=== PATIENT | male | born 1980 | race Caucasian/White ===

== ENCOUNTER 2016-12-19 12:17 | Inpatient (IN) | payer OTHER ==
[2016-12-19 14:11] VITALS: BMI 22.1
--- NOTE | 2016-12-19 16:30 | HP ---
COWS - Scale Resting Pulse: 1= [place] 81-100 Sweatin= Chills/Flushing Restless Observation: 1= Difficult to Sit Still Pupil Size: 1= Pupils >than Normal Bone or Joint Aches: 1= Mild Discomfort Runny Nose/ Eye Tearin= Nasal Congestion GI Upset > 30mins: 1= Stomach Cramp Tremor Observation: 1= Tremor [place], Not Seen Yawning Observation: 0= None Anxiety or Irritability: 1=Feels Anxious/Irritable Goose Flesh Skin: 0=Smooth Skin COWS Score: 9 Admission ROS S - HPI Chief Complaint: I need to stop using opioids as per parole, and i need help. Allergies/Adverse Reactions: Allergies Allergy/AdvReac Type Severity Reaction Status Date / Time No Known Allergies Allergy Verified 12/19/16 14:31 History of Present Illness: 36 y/o m pt with a h/o percocet dep., cocaine and acohol abuse seeking detox. Exam Limitations: No Limitations - Ebola screening Have you traveled outside of the country in the last 21 days: No Have you had contact with anyone from an Ebola affected area: No Have you been sick,other than usual withdrawal symptoms: No Do you have a fever: No - Review of Systems Constitutional: Chills, Changes in sleep, Unexplained wgt Loss (5 lbs over past month) EENT: reports: Nose Congestion Respiratory: reports: No Symptoms reported Cardiac: reports: No Symptoms Reported GI: reports: Poor Appetite : reports: No Symptoms Reported Musculoskeletal: reports: Muscle Weakness Integumentary: reports: Sweating Neuro: reports: No Symptoms reported Endocrine: reports: No Symptoms Reported Hematology: reports: No Symptoms Reported Psychiatric: reports: Anxious, Depressed Other Systems: Reviewed and Negative Patient History - Patient Medical History Hx Anemia: No Hx Asthma: No Hx Chronic Obstructive Pulmonary Disease (COPD): No Hx Cancer: No Hx Cardiac Disorders: No Hx Congestive Heart Failure: No Hx Hypertension: No Hx Hypercholesterolemia: No Hx Pacemaker: No HX Cerebrovascular Accident: No Hx Seizures: No Hx Diabetes: No Hx Gastrointestinal Disorders: No Hx Liver Disease: No Hx Genitourinary Disorders: No Hx Sexually Transmitted Disorders: No Hx Renal Disease (ESRD): No Hx Thyroid Disease: No Hx Human Immunodeficiency Virus (HIV): No Hx Hepatitis C: No Hx Depression: Yes Hx Suicide Attempt: No Hx Bipolar Disorder: No Hx Schizophrenia: No (schizoaffective ) - Patient Surgical History Past Surgical History: Yes Hx Neurologic Surgery: No Hx Cataract Extraction: No Hx Cardiac Surgery: No Hx Lung Surgery: No Hx Breast Surgery: No Hx Breast Biopsy: No Hx Abdominal Surgery: No Hx Appendectomy: No Hx Cholecystectomy: No Hx Genitourinary Surgery: No Hx Section: No Hx Orthopedic Surgery: No Other Surgical History: tendon repair, left hand Anesthesia Reaction: No - PPD History Previous Implant?: Yes Documented Results: Negative w/o proof Implanted On Prior [facility] Admission?: No PPD to be Administered?: Yes - Reproductive History Patient is a Female of Child Bearing Age (11 -55 yrs old): Yes - Smoking Cessation Smoking history: Current every day smoker Have you smoked in the past 12 months: Yes Aproximately how many cigarettes per day: 10 Cigars Per Day: 0 Hx Chewing Tobacco Use: No Initiated information on smoking cessation: Yes 'Breaking Loose' booklet given: 12/19/16 - Substance & Tx. History Hx Alcohol Use: Yes Hx Substance Use: Yes Substance Use Type: Alcohol, Cocaine, Opiates - Substances Abused Cocaine Route: Inhalation Frequency: 1-2 times per week Amount used: $100-200 Age of first use: 21 Date of Last Use: 12/18/16 Percocet Route: Oral Frequency: Daily Amount used: 1 tabs. (30 mg.) Age of first use: 19 Date of Last Use: 12/18/16 Alcohol-beer Route: Oral Frequency: 1-2 times per week Amount used: 5-6 (12 oz.) Age of first use: 15 Date of Last Use: 12/17/16 Family Disease History - Family Disease History Family Disease History: Other: Mother (breast - ) Admission Physical Exam BHS - Vital Signs Vital Signs: Vital Signs - 24 hr 12/19/16 14:09 Temperature 95.4 F L Pulse Rate 61 Respiratory 16 Rate Blood Pressure 99/63 36 y/o m pt aox3 in nad ambulating , restless - Physical General Appearance: Yes: Thin, Sweating, Anxious HEENTM: Yes: EOMI, Normocephalic, Normal Voice, CAMILA Respiratory: Yes: Chest Non-Tender, Lungs Clear, Normal Breath Sounds, No Respiratory Distress Neck: Yes: Supple Breast: Yes: Within Normal Limits Cardiology: Yes: Regular Rhythm, Regular Rate, S1, S2 Abdominal: Yes: Non Tender, Flat, Soft, Increased Bowel Sounds Genitourinary: Yes: Within Normal Limits Back: Yes: Decreased Range of Motion Musculoskeletal: Yes: Back pain Extremities: Yes: Within Normal Limits Neurological: Yes: fixed income director II-XII NML intact, Fully Oriented, Alert, Motor Strength 5/5, Normal Response Integumentary: Yes: Moist Lymphatic: Yes: Within Normal Limits - Diagnostic (1) Opioid dependence with withdrawal Current Visit: Yes Status: Chronic (2) Cocaine dependence, uncomplicated Current Visit: Yes Status: Chronic (3) Alcohol abuse Current Visit: Yes Status: Chronic (4) Nicotine dependence Current Visit: Yes Status: Chronic Qualifiers: Nicotine product type: cigarettes Substance use status: uncomplicated Qualified Code(s): F17.210 - Nicotine dependence, cigarettes, uncomplicated (5) Schizoaffective disorder Current Visit: Yes Status: Chronic Qualifiers: Schizoaffective disorder type: unspecified Qualified Code(s): F25.9 - Schizoaffective disorder, unspecified Cleared for Admission [facility] - Detox or Rehab [facility] Level of Care: Medically Managed Detox Regimen/Protocol: Methadone/Valium, Suboxone [facility] Breath Alcohol Content Breath Alcohol Content: 0 Urine Drug Screen - Results Drug Screen Negative: No Urine Drug Screen Results: ML-Cocaine, OPI-Opiates
[2016-12-19] MEDS ORDERED: MAGNESIUM HYDROX 2400MG/30ML ORAL SUSPENSION 30 ML CUP PO PRN (16:56)
[2016-12-19] MEDS ORDERED: guaiFENesin/D-METHORPHAN HB 10 ML UNIT-DOSE CUPS PO PRN (16:56)
[2016-12-19] MEDS ORDERED: diphenhydrAMINE HCL 50 MG CAPSULE PO PRN (16:56)
[2016-12-19] MEDS ORDERED: MENTHOL/PHENOL 1 EACH UD MM PRN (16:56)
[2016-12-19] MEDS ORDERED: P-EPHED 60MG/TRIPROLIDI 2.5MG TABLET PO PRN (16:56)
[2016-12-19] MEDS ORDERED: ACETAMINOPHEN 325 MG TABLET (FP) PO PRN (16:56)
[2016-12-19] MEDS ORDERED: IBUPROFEN 400 MG TABLET (FP) PO PRN (16:56)
[2016-12-19] MEDS ORDERED: NICOTINE POLACRILEX 4 MG GUM BC PRN (16:56)
[2016-12-19] MEDS ORDERED: LOPERAMIDE HCL 2 MG CAPSULE PO PRN (16:56)
[2016-12-19] MEDS ORDERED: MAGNESIUM CITRATE 300 ML BOTTLE PO PRN (16:56)
[2016-12-19] MEDS ORDERED: MAG HYDROX/AL HYDROX/SIMETH 30 ML UNIT-DOSE CUP PO PRN (16:56)
[2016-12-19] MEDS ORDERED: METHADONE HCL 10 MG TABLET (FOR DETOX USE ONLY) PO ONE ×2 (17:30→22:14)
[2016-12-19] MEDS: diazePAM 5 MG TABLET PO PRN ×2 (18:11→22:10)
[2016-12-19] MEDS: THIAMINE HCL 100 MG TABLET (FP) PO SCH (22:10)
[2016-12-19 22:51] LABS: URINE APPEARANCE CLEAR; URINE BILIRUBIN NEGATIVE (NEGATIVE); URINE BLOOD NEGATIVE (NEGATIVE); URINE COLOR YELLOW; URINE GLUCOSE (UA) NEGATIVE (NEGATIVE); URINE KETONE NEGATIVE (NEGATIVE); URINE NITRITE NEGATIVE (NEGATIVE); URINE PROTEIN NEGATIVE (NEGATIVE); URINE UROBILINOGEN NEGATIVE E.U./dl (0.2-1.0)
[2016-12-19 22:57] LABS: URINE LEUK ESTERASE TRACE (NEGATIVE)
[2016-12-19 22:59] LABS: URINE MUCUS RARE; URINE RBC 1 /hpf (0-3); URINE WBC 10 /hpf (3-5)
[2016-12-20] MEDS: diazePAM 5 MG TABLET PO PRN ×7 (02:10→22:44)
[2016-12-20] MEDS ORDERED: METHADONE HCL 5 MG TABLET (FOR DETOX USE ONLY) PO SCH (10:00)
[2016-12-20] MEDS: METHADONE HCL 5 MG TABLET (FOR DETOX USE ONLY) PO ONE ×2 (10:06→10:47)
[2016-12-20] MEDS: PRENATAL VITAMINS W/ FOLIC ACID TABLET (FP) PO SCH (10:06)
[2016-12-20] MEDS: NICOTINE 21 MG/24 HOURS TOPICAL PATCH TD SCH (10:06)
[2016-12-20 10:08] LABS: MCH 31.7 pg (25.7-33.7); MCHC 33.6 g/dl (32.0-35.9); MEAN CELL VOLUME 94.3 fl (80-96); MEAN PLT VOLUME 10.3 fl (7.5-11.1); PLATELET COUNT 242 K/MM3 (134-434); RDW 13.5 % (11.9-15.9); WHITE BLOOD COUNT 6.6 K/mm3 (4.0-10.0)
--- NOTE | 2016-12-20 10:37 | PN ---
BHS COWS - Scale Resting Pulse: 1= [place] 81-100 Sweatin= Chills/Flushing Restless Observation: 3= Extraneous Movement Pupil Size: 2= Moderately Dilated Bone or Joint Aches: 4=Acute Joint/Muscle Pain Runny Nose/ Eye Tearin= Nasal Congestion GI Upset > 30mins: 1= Stomach Cramp Tremor Observation of Outstretched Hands: 2= Slight Tremor Visible Yawning Observation: 1= 1-2x During Session Anxiety or Irritability: 2=Irritable/Anxious Goose Flesh Skin: 0=Smooth Skin COWS Score: 18 BHS Progress Note (SOAP) Subjective: ANXIETY,IRRITABILITY,SWEATS/COLD,INTERMITTENT SLEEP. Objective: 12/20/16 10:36 Vital Signs 12/20/16 12/20/16 12/20/16 03:30 06:33 10:15 Temperature 95.6 F L 96.7 F L Pulse Rate 90 74 Respiratory 18 16 18 Rate Blood Pressure 116/59 98/56 Laboratory Last Values WBC 6.6 K/mm3 (4.0-10.0) 12/20/16 06:00 RBC 5.47 M/mm3 (4.00-5.60) 12/20/16 06:00 Hgb 17.3 GM/dL (11.7-16.9) H 12/20/16 06:00 Hct 51.6 % (35.4-49) H 12/20/16 06:00 MCV 94.3 fl (80-96) 12/20/16 06:00 MCHC 33.6 g/dl (32.0-35.9) 12/20/16 06:00 RDW 13.5 % (11.9-15.9) 12/20/16 06:00 Plt Count 242 K/MM3 (134-434) 12/20/16 06:00 MPV 10.3 fl (7.5-11.1) 12/20/16 06:00 Urine Color Yellow 12/19/16 22:41 Urine Appearance Clear 12/19/16 22:41 Urine pH 5.0 (5.0-8.0) 12/19/16 22:41 Ur Specific [place] 1.032 (1.001-1.035) 12/19/16 22:41 Urine Protein Negative (NEGATIVE) 03/21/17 22:41 Urine Glucose (UA) Negative (NEGATIVE) 12/19/16 22:41 Urine Ketones Negative (NEGATIVE) 12/19/16 22:41 Urine Blood Negative (NEGATIVE) 12/19/16 22:41 Urine Nitrite Negative (NEGATIVE) 12/19/16 22:41 Urine Bilirubin Negative (NEGATIVE) 12/19/16 22:41 Urine Urobilinogen Negative E.U./dl (0.2-1.0) 12/19/16 22:41 Ur Leukocyte Esterase Trace (NEGATIVE) H 12/19/16 22:41 Urine RBC 1 /hpf (0-3) 12/19/16 22:41 Urine WBC 10 /hpf (3-5) 12/19/16 22:41 Urine Mucus Rare 12/19/16 22:41 LABS NOTED 12/20/16 10:36 Assessment: 12/20/16 10:36 WITHDRAWAL SX R/O UTI Plan: CONTINUE DETOX REPEAT UA TODAY INCREASE PO FLUIDS.
[2016-12-20] MEDS ORDERED: METHADONE HCL 5 MG TABLET (FOR DETOX USE ONLY) PO ONE (10:45)
[2016-12-20] MEDS ORDERED: METHADONE HCL 10 MG TABLET (FOR DETOX USE ONLY) PO ONE (10:45)
[2016-12-20 10:50] LABS: ALBUMIN 4.2 g/dl (3.4-5.0); BILIRUBIN,TOTAL 0.8 mg/dL (0.2-1.0); CREATININE 1.5 mg/dL (0.7-1.3); TOT PROT 7.7 g/dl (6.4-8.2)
--- NOTE | 2016-12-20 11:01 | CONSULT ---
[facility] Psychiatric Consult - Data Date of interview: 12/20/16 Admission source: [facility] Identifying data: First admission to [facility] for this 36 y/o male seeking detox treatment for alcohol,cocaine and opiate dependence.Patient is single without children,domiciled,unemployed and supported on SSI benefits.Released from shelter approximately five months ago after serving a 5- year sentence.Mr Burnette is currently on parole. Substance Abuse History: - Smoking Cessation. Smoking history: Current every day smoker. Have you smoked in the past 12 months: Yes. Aproximately how many cigarettes per day: 10. Cigars Per Day: 0. Hx Chewing Tobacco Use: No. Initiated information on smoking cessation: Yes. 'Breaking Loose' booklet given : 12/19/16. - Substance & Tx. History. Hx Alcohol Use: Yes. Hx Substance Use : Yes. Substance Use Type: Alcohol, Cocaine, Opiates. - Substances Abused. * * Cocaine. Route: Inhalation. Frequency: 1-2 times per week. Amount used: $ 100-200. Age of first use: 21. Date of Last Use: 12/18/16. Percocet. Route: Oral. Frequency: Daily. Amount used: 1 tabs. (30 mg.). Age of first use: 19. Date of Last Use: 12/18/16. Alcohol-beer. Route: Oral. Frequency : 1-2 times per week. Amount used: 5-6 (12 oz.). Age of first use: 15. Date of Last Use: 12/17/16. Confirmed by the patient. Medical History: Patient endorses good general health.Noted past history of orthosurgery for tendon repair (left hand),fracture of right arm/middle finger and injury to left shoulder.No reported allergies. Psychiatric History: No history of psychiatric hospitalizations.Patient reports prior exposure to benzodiazepines (prescribed) before his incarceration.Mr Burnette indicates that he got referred to [facility] mental health clinic for psychiatric assessment/follow-up.Diagnosed with PTSD,Anxiety Disorder and Schizoaffective Disorder.He is making pressing requests for scripts for diazepam ,klonopin and xanax.No history of suicide attempts. Physical/Sexual Abuse/Trauma History: Patient denies history of suicide attempts. Additional Comment: Urine Drug Screen Results: ML-Cocaine, OPI-Opiates.Noted. Mental Status Exam - Mental Status Exam Alert and Oriented to: Time, Place, Person Cognitive Function: Good Patient Appearance: Well Groomed (neatly attired,close-shaven) Mood: Hopeful, Euthymic Affect: Appropriate, Normal Range Patient Behavior: Appropriate, Cooperative Speech Pattern: Clear Voice Loudness: Normal Thought Process: Goal Oriented Thought Disorder: Not Present Hallucinations: Denies Suicidal Ideation: Denies Homicidal Ideation: Denies Insight/Judgement: Poor Sleep: Well Appetite: Good Muscle strength/Tone: Normal Gait/Station: Normal Psychiatric Findings - Problem List ([place] 1, 2,3) (1) Cocaine dependence, uncomplicated Current Visit: Yes Status: Acute (2) Opioid dependence with withdrawal Current Visit: Yes Status: Acute (3) Alcohol dependence Current Visit: Yes Status: Acute (4) Nicotine dependence Current Visit: Yes Status: Acute Qualifiers: Nicotine product type: cigarettes Substance use status: uncomplicated Qualified Code(s): F17.210 - Nicotine dependence, cigarettes, uncomplicated (5) Schizoaffective disorder Current Visit: Yes Status: Chronic Qualifiers: Schizoaffective disorder type: unspecified Qualified Code(s): F25.9 - Schizoaffective disorder, unspecified Comment: Self-report. - Initial Treatment Plan Initial Treatment Plan: Psychoeducation.Detoxification.Observation.Patient declines to take psychotropic medications with the exception of benzodiazepines/ detox drugs.
--- NOTE | 2016-12-20 11:07 | EKG ---
Test Reason : Blood Pressure : / mmHG Vent. Rate : 067 BPM Atrial Rate : 067 BPM P-R Int : 154 ms QRS Dur : 092 ms QT Int : 416 ms P-R-T Axes : 059 069 045 degrees QTc Int : 439 ms NORMAL SINUS RHYTHM WITH SINUS ARRHYTHMIA NORMAL ECG NO PREVIOUS ECGS AVAILABLE Confirmed by PITER URBINA MD ([id number]) on 12/20/2016 11:07:13 AM Referred By: Confirmed By:PITER URBINA MD
[2016-12-20 12:23] LABS: HIV 1 & 2 AB NEGATIVE; HIV 1 AGp24 NEGATIVE
[2016-12-20 14:56] LABS: URINE APPEARANCE CLEAR; URINE BILIRUBIN NEGATIVE (NEGATIVE); URINE BLOOD NEGATIVE (NEGATIVE); URINE COLOR LTYELLOW; URINE GLUCOSE (UA) NEGATIVE (NEGATIVE); URINE KETONE NEGATIVE (NEGATIVE); URINE LEUK ESTERASE NEGATIVE (NEGATIVE); URINE NITRITE NEGATIVE (NEGATIVE); URINE PROTEIN NEGATIVE (NEGATIVE); URINE UROBILINOGEN NEGATIVE E.U./dl (0.2-1.0)
[2016-12-20] MEDS: THIAMINE HCL 100 MG TABLET (FP) PO SCH (22:14)
[2016-12-20] MEDS ORDERED: RANITIDINE HCL 150 MG TABLET (FP) PO ONE (23:07)
[2016-12-21] MEDS: diazePAM 5 MG TABLET PO PRN ×4 (02:52→16:41)
[2016-12-21] MEDS ORDERED: METHADONE HCL 10 MG TABLET (FOR DETOX USE ONLY) PO ONE (10:00)
[2016-12-21] MEDS ORDERED: METHADONE HCL 5 MG TABLET (FOR DETOX USE ONLY) PO ONE (10:00)
[2016-12-21] MEDS: PRENATAL VITAMINS W/ FOLIC ACID TABLET (FP) PO SCH (10:13)
[2016-12-21] MEDS: RANITIDINE HCL 150 MG TABLET (FP) PO SCH (10:13)
[2016-12-21] MEDS: NICOTINE 21 MG/24 HOURS TOPICAL PATCH TD SCH (10:15)
--- NOTE | 2016-12-21 11:01 | PN ---
BHS COWS - Scale Resting Pulse: 1= [place] 81-100 Sweatin= Chills/Flushing Restless Observation: 3= Extraneous Movement Pupil Size: 2= Moderately Dilated Bone or Joint Aches: 4=Acute Joint/Muscle Pain Runny Nose/ Eye Tearin= Nasal Congestion GI Upset > 30mins: 1= Stomach Cramp Tremor Observation of Outstretched Hands: 2= Slight Tremor Visible Yawning Observation: 2= >3x During Session Anxiety or Irritability: 2=Irritable/Anxious Goose Flesh Skin: 0=Smooth Skin COWS Score: 19 BHS Progress Note (SOAP) Subjective: ANXIETY,IRRITABILITY,AGITATIONS,RESTLESSNESS, SWEATS, INTERMITTENT SLEPP. Objective: 12/21/16 11:00 Vital Signs Temperature 95.7 F L 12/21/16 09:28 Pulse Rate 79 12/21/16 09:28 Respiratory Rate 18 12/21/16 09:28 Blood Pressure 108/67 12/21/16 09:28 O2 Sat by Pulse Oximetry (%) Laboratory Last Values WBC 6.6 K/mm3 (4.0-10.0) 12/20/16 06:00 RBC 5.47 M/mm3 (4.00-5.60) 12/20/16 06:00 Hgb 17.3 GM/dL (11.7-16.9) H 12/20/16 06:00 Hct 51.6 % (35.4-49) H 12/20/16 06:00 MCV 94.3 fl (80-96) 12/20/16 06:00 MCHC 33.6 g/dl (32.0-35.9) 12/20/16 06:00 RDW 13.5 % (11.9-15.9) 12/20/16 06:00 Plt Count 242 K/MM3 (134-434) 12/20/16 06:00 MPV 10.3 fl (7.5-11.1) 12/20/16 06:00 Sodium 138 mmol/L (136-145) 12/20/16 06:00 Potassium 4.7 mmol/L (3.5-5.1) 12/20/16 06:00 Chloride 100 mmol/L (98-107) 12/20/16 06:00 Carbon Dioxide 31 mmol/L (21-32) 12/20/16 06:00 Anion Gap 7 (8-16) L 12/20/16 06:00 BUN 20 mg/dL (7-18) H 12/20/16 06:00 Creatinine 1.5 mg/dL (0.7-1.3) H 12/20/16 06:00 Creat Clearance w eGFR 53.57 (>60) 12/20/16 06:00 Random Glucose 61 mg/dL (74-106) L 12/20/16 06:00 Calcium 10.0 mg/dL (8.5-10.1) 12/20/16 06:00 Total Bilirubin 0.8 mg/dL (0.2-1.0) 12/20/16 06:00 AST 37 U/L (15-37) 12/20/16 06:00 ALT 36 U/L (12-78) 12/20/16 06:00 Alkaline Phosphatase 115 U/L (45-117) 12/20/16 06:00 Total Protein 7.7 g/dl (6.4-8.2) 12/20/16 06:00 Albumin 4.2 g/dl (3.4-5.0) 12/20/16 06:00 Urine Color Ltyellow 12/20/16 13:20 Urine Appearance Clear 12/20/16 13:20 Urine pH 6.0 (5.0-8.0) 12/20/16 13:20 Ur Specific [place] 1.011 (1.001-1.035) 12/20/16 13:20 Urine Protein Negative (NEGATIVE) 12/20/16 13:20 Urine Glucose (UA) Negative (NEGATIVE) 12/20/16 13:20 Urine Ketones Negative (NEGATIVE) 12/20/16 13:20 Urine Blood Negative (NEGATIVE) 12/20/16 13:20 Urine Nitrite Negative (NEGATIVE) 12/20/16 13:20 Urine Bilirubin Negative (NEGATIVE) 12/20/16 13:20 Urine Urobilinogen Negative E.U./dl (0.2-1.0) 12/20/16 13:20 Ur Leukocyte Esterase Negative (NEGATIVE) 12/20/16 13:20 Urine RBC 1 /hpf (0-3) 12/19/16 22:41 Urine WBC 10 /hpf (3-5) 12/19/16 22:41 Urine Mucus Rare 12/19/16 22:41 RPR Titer Nonreactive (NONREACTIVE) 12/20/16 06:00 HIV 1&2 Antibody Screen Negative 12/20/16 08:50 HIV P24 Antigen Negative 12/20/16 08:50 Assessment: 12/21/16 11:01 WITHDRAWAL SX Plan: CONTINUE DETOX
[2016-12-21] MEDS ORDERED: QUEtiapine FUMARATE 100 MG TABLET (FP) PO STA (12:45)
[2016-12-21] MEDS: hydrOXYzine PAMOATE 50 MG CAPSULE (FP) PO PRN ×2 (12:55→22:15)
--- NOTE | 2016-12-21 13:03 | PN ---
Psychiatric Progress Note Vital Signs: Vital Signs Period Temp Pulse Resp BP Sys/Lewis Pulse Ox Last 24 Hr 95.7 F-97.9 F 75-98 16-18 90-125/67-78 Date of Session: 12/21/16 Chief Complaint:: agitation and anxiety HPI: As per nursing reports patient reports anxiety, asking for benzodiazepins, agitated and irritable Current Medications: Active Medications Generic Name Dose Route Start Last Admin Trade Name Freq PRN Reason Stop Dose Admin Acetaminophen 650 mg 12/19/16 16:56 Tylenol - PO Q4H PRN FEVER OR PAIN Al Hydroxide/Mg Hydroxide 30 ml 12/19/16 16:56 12/20/16 23:06 Mylanta Oral Suspension - PO 30 ml Q6H PRN Administration DYSPEPSIA Diazepam 10 mg 12/19/16 16:56 12/21/16 11:04 Valium - PO 12/21/16 16:55 10 mg Q4H PRN Administration WITHDRAWAL(CONT SUBST) Diphenhydramine HCl 50 mg 12/19/16 16:56 Benadryl - PO HSMR1 PRN INSOMNIA Eucalyptus/Menthol/Phenol/Sorbitol 1 each 12/19/16 16:56 Cepastat Lozenge - MM Q4H PRN SORE THROAT Guaifenesin 10 ml 12/19/16 16:56 Robitussin Dm - PO Q6H PRN COUGH Hydroxyzine Pamoate 50 mg 12/21/16 12:44 12/21/16 12:55 Vistaril - PO 50 mg Q4H PRN Administration FOR ITCHING Ibuprofen 400 mg 12/19/16 16:56 Motrin - PO Q6H PRN SEVERE PAIN Loperamide HCl 4 mg 12/19/16 16:56 Imodium - PO Q6H PRN DIARRHEA Magnesium Citrate 300 ml 12/19/16 16:56 Citroma - PO Q48H PRN CONSTIPATION Magnesium Hydroxide 30 ml 12/19/16 16:56 Milk Of Magnesia - PO DAILY PRN CONSTIPATION Methadone HCl 5 mg 12/23/16 06:00 Dolophine - PO 12/23/16 06:01 ONCE@0600 ONE Methadone HCl 10 mg 12/22/16 10:00 Dolophine - PO 12/22/16 10:01 ONCE ONE Nicotine 21 mg 12/20/16 10:00 12/21/16 10:15 Nicoderm Patch - TD Not Given DAILY JACKSON Nicotine Polacrilex 4 mg 12/19/16 16:56 Nicorette Gum - BC Q2H PRN NICOTINE REPLACEMENT RX Multivit/Folic Acid/Iron 1 tab 12/20/16 10:00 12/21/16 10:13 Vitamins (Sjr) - PO 1 tab DAILY JACKSON Administration Pseudoephedrine/Triprolidine 1 combo 12/19/16 16:56 Actifed - PO TID PRN NASAL CONGESTION Quetiapine Fumarate 100 mg 12/21/16 14:00 Seroquel - PO TID JACKSON Ranitidine HCl 150 mg 12/21/16 10:00 12/21/16 10:13 Zantac - PO 150 mg DAILY JACKSON Administration Thiamine HCl 100 mg 12/19/16 22:00 12/20/16 22:14 Vitamin B1 - PO 100 mg HS JACKSON Administration Medication(s) Change(s): Seoquel 100mg po stat. Seroquel 100mg po tid. Vistaril 50mg po q4 prn for anxiety and aditation Mental Status Exam - Mental Status Exam Alert and Oriented to: Person Patient Appearance: Unkempt Mood: Nervous, Anxious, Irritable Affect: Labile Patient Behavior: Fearful, Impulsive, Talkative Speech Pattern: Excessive, Pressured Voice Loudness: Mildly Loud Thought Process: Circumstantial Thought Disorder: Being Controlled Hallucinations: Denies Suicidal Ideation: Denies Homicidal Ideation: Denies Insight/Judgement: Fair Sleep: Difficulty falling asleep Appetite: Weight loss Muscle strength/Tone: Mild Hypertonicity Gait/Station: Normal Additional Comments: Seoquel 100mg po stat. Seroquel 100mg po tid. Vistaril 50mg po q4 prn for anxiety and aditation Psychiatric Treatment Plan - Problem List (1) Alcohol dependence Current Visit: Yes (2) Cocaine dependence, uncomplicated Current Visit: Yes (3) Nicotine dependence Current Visit: Yes Qualifiers: Nicotine product type: cigarettes Substance use status: uncomplicated Qualified Code(s): F17.210 - Nicotine dependence, cigarettes, uncomplicated (4) Opioid dependence with withdrawal Current Visit: Yes (5) Alcohol abuse Current Visit: Yes (6) Schizoaffective disorder Current Visit: Yes Qualifiers: Schizoaffective disorder type: unspecified Qualified Code(s): F25.9 - Schizoaffective disorder, unspecified Comment: Self-report. Initial treatment plan: Seoquel 100mg po stat. Seroquel 100mg po tid. Vistaril 50mg po q4 prn for anxiety and aditation
[2016-12-21] MEDS ORDERED: CYCLOBENZAPRINE HCL 10 MG TABLET (FP) PO SCH (14:00)
[2016-12-21] MEDS: QUEtiapine FUMARATE 100 MG TABLET (FP) PO SCH ×2 (15:01→22:14)
[2016-12-21] MEDS: THIAMINE HCL 100 MG TABLET (FP) PO SCH (22:14)
[2016-12-22] MEDS ORDERED: METHADONE HCL 5 MG TABLET (FOR DETOX USE ONLY) PO ONE (06:00)
[2016-12-22] MEDS: QUEtiapine FUMARATE 100 MG TABLET (FP) PO SCH ×2 (07:11→13:25)
[2016-12-22] MEDS ORDERED: METHADONE HCL 10 MG TABLET (FOR DETOX USE ONLY) PO ONE (10:00)
[2016-12-22] MEDS: RANITIDINE HCL 150 MG TABLET (FP) PO SCH (10:13)
[2016-12-22] MEDS: PRENATAL VITAMINS W/ FOLIC ACID TABLET (FP) PO SCH (10:13)
[2016-12-22] MEDS: NICOTINE 21 MG/24 HOURS TOPICAL PATCH TD SCH (10:13)
[2016-12-22] MEDS: hydrOXYzine PAMOATE 50 MG CAPSULE (FP) PO PRN ×2 (10:13→14:41)
--- NOTE | 2016-12-22 11:08 | PN ---
BHS Progress Note (SOAP) Subjective: Sweating,interrupted sleep,restless. Objective: 12/22/16 11:07 Vital Signs - 8 hr 12/22/16 12/22/16 03:30 10:53 Temperature 96.3 F L Pulse Rate 100 H Respiratory 18 18 Rate Blood Pressure 119/81 Laboratory Tests 12/19/16 12/20/16 12/20/16 22:41 06:00 06:00 WBC 6.6 RBC 5.47 Hgb 17.3 H Hct 51.6 H MCV 94.3 MCHC 33.6 RDW 13.5 Plt Count 242 MPV 10.3 Sodium 138 Potassium 4.7 Chloride 100 Carbon Dioxide 31 Anion Gap 7 L BUN 20 H Creatinine 1.5 H Creat Clearance w eGFR 53.57 Random Glucose 61 L Calcium 10.0 Total Bilirubin 0.8 AST 37 ALT 36 Alkaline Phosphatase 115 Total Protein 7.7 Albumin 4.2 Urine Color Yellow Urine Appearance Clear Urine pH 5.0 Ur Specific [place] 1.032 Urine Protein Negative Urine Glucose (UA) Negative Urine Ketones Negative Urine Blood Negative Urine Nitrite Negative Urine Bilirubin Negative Urine Urobilinogen Negative Ur Leukocyte Esterase Trace H Urine RBC 1 Urine WBC 10 Urine Mucus Rare RPR Titer HIV 1&2 Antibody Screen HIV P24 Antigen 12/20/16 12/20/16 12/20/16 06:00 08:50 13:20 WBC RBC Hgb Hct MCV MCHC RDW Plt Count MPV Sodium Potassium Chloride Carbon Dioxide Anion Gap BUN Creatinine Creat Clearance w eGFR Random Glucose Calcium Total Bilirubin AST ALT Alkaline Phosphatase Total Protein Albumin Urine Color Ltyellow Urine Appearance Clear Urine pH 6.0 Ur Specific [place] 1.011 Urine Protein Negative Urine Glucose (UA) Negative Urine Ketones Negative Urine Blood Negative Urine Nitrite Negative Urine Bilirubin Negative Urine Urobilinogen Negative Ur Leukocyte Esterase Negative Urine RBC Urine WBC Urine Mucus RPR Titer Nonreactive HIV 1&2 Antibody Screen Negative HIV P24 Antigen Negative labs noted Assessment: 12/22/16 11:07 Withdrawal sx. Plan: Continue detox
[2016-12-22 13:16] VITALS: TEMP 95.6
[2016-12-22 17:33] VITALS: BP 97/68; PULSE 80
--- NOTE | 2016-12-22 19:51 | DS ---
[facility] Detox Discharge Summary Admission Date: 12/19/16 Discharge Date: 12/22/16 - History Present History: Opioid Dependence Additional Comments: RECEIVED NURSE INFORMED PATIENT IS VERBALLY ABUSE TO PEERS AND STAFF, PHYSICAL THREATENING, AGGRESSIVE ATTITUDE, DISRUPT THERAPEUTIC ENVIRONMENT, ANGRY OUT BURST, SECURITY DISCUSS SAFETY CONCERN WITH THE PATIENT WITHOUT EFFECT PATIENT HAS BEEN ADMINISTRATIVE DISCHARGED FOR THE SAFETY OF PEERS AND STAFF. COMMUNITY RESOURCES WERE GIVEN, RECOMMEND ER SERVICES IF NECESSARY Pertinent Past History: SCHIZOAFFECTIVE PERSONALITY DISORDER - Physical Exam Results Vital Signs: Vital Signs Temperature 95.6 F L 12/22/16 13:15 Pulse Rate 80 12/22/16 17:33 Respiratory Rate 18 12/22/16 17:33 Blood Pressure 97/68 12/22/16 17:33 O2 Sat by Pulse Oximetry (%) Pertinent Admission Physical Exam Findings: WITHDRAWAL SX Laboratory Last Values WBC 6.6 K/mm3 (4.0-10.0) 12/20/16 06:00 RBC 5.47 M/mm3 (4.00-5.60) 12/20/16 06:00 Hgb 17.3 GM/dL (11.7-16.9) H 12/20/16 06:00 Hct 51.6 % (35.4-49) H 12/20/16 06:00 MCV 94.3 fl (80-96) 12/20/16 06:00 MCHC 33.6 g/dl (32.0-35.9) 12/20/16 06:00 RDW 13.5 % (11.9-15.9) 12/20/16 06:00 Plt Count 242 K/MM3 (134-434) 12/20/16 06:00 MPV 10.3 fl (7.5-11.1) 12/20/16 06:00 Sodium 138 mmol/L (136-145) 12/20/16 06:00 Potassium 4.7 mmol/L (3.5-5.1) 12/20/16 06:00 Chloride 100 mmol/L (98-107) 12/20/16 06:00 Carbon Dioxide 31 mmol/L (21-32) 12/20/16 06:00 Anion Gap 7 (8-16) L 12/20/16 06:00 BUN 20 mg/dL (7-18) H 12/20/16 06:00 Creatinine 1.5 mg/dL (0.7-1.3) H 12/20/16 06:00 Creat Clearance w eGFR 53.57 (>60) 12/20/16 06:00 Random Glucose 61 mg/dL (74-106) L 12/20/16 06:00 Calcium 10.0 mg/dL (8.5-10.1) 12/20/16 06:00 Total Bilirubin 0.8 mg/dL (0.2-1.0) 12/20/16 06:00 AST 37 U/L (15-37) 12/20/16 06:00 ALT 36 U/L (12-78) 12/20/16 06:00 Alkaline Phosphatase 115 U/L (45-117) 12/20/16 06:00 Total Protein 7.7 g/dl (6.4-8.2) 12/20/16 06:00 Albumin 4.2 g/dl (3.4-5.0) 12/20/16 06:00 Urine Color Ltyellow 12/20/16 13:20 Urine Appearance Clear 12/20/16 13:20 Urine pH 6.0 (5.0-8.0) 12/20/16 13:20 Ur Specific [place] 1.011 (1.001-1.035) 12/20/16 13:20 Urine Protein Negative (NEGATIVE) 12/20/16 13:20 Urine Glucose (UA) Negative (NEGATIVE) 12/20/16 13:20 Urine Ketones Negative (NEGATIVE) 12/20/16 13:20 Urine Blood Negative (NEGATIVE) 12/20/16 13:20 Urine Nitrite Negative (NEGATIVE) 12/20/16 13:20 Urine Bilirubin Negative (NEGATIVE) 12/20/16 13:20 Urine Urobilinogen Negative E.U./dl (0.2-1.0) 12/20/16 13:20 Ur Leukocyte Esterase Negative (NEGATIVE) 12/20/16 13:20 Urine RBC 1 /hpf (0-3) 12/19/16 22:41 Urine WBC 10 /hpf (3-5) 12/19/16 22:41 Urine Mucus Rare 12/19/16 22:41 RPR Titer Nonreactive (NONREACTIVE) 12/20/16 06:00 HIV 1&2 Antibody Screen Negative 12/20/16 08:50 HIV P24 Antigen Negative 12/20/16 08:50 LAB NOTED - Treatment Hospital Course: Detox Protocol Followed, Responded well - Medication Discharge Medications: Ambulatory Orders NK [No Known Home Medication] 12/19/16 - Diagnosis (1) Nicotine dependence Current Visit: Yes Status: Acute Qualifiers: Nicotine product type: cigarettes Substance use status: in withdrawal Qualified Code(s): F17.213 - Nicotine dependence, cigarettes, with withdrawal (2) Opioid dependence with withdrawal Current Visit: Yes Status: Acute (3) Schizoaffective disorder Current Visit: Yes Status: Suspected Qualifiers: Schizoaffective disorder type: unspecified Qualified Code(s): F25.9 - Schizoaffective disorder, unspecified - AMA Did Patient Leave Against Medical Advice: No
[2016-12-23] MEDS ORDERED: METHADONE HCL 5 MG TABLET (FOR DETOX USE ONLY) PO ONE (06:00)
== END 2016-12-22 18:33 | disposition home or self-care (01) | DRG 773 ==
LOC: YASAS 12:17 → Y3N 15:09
PROVIDERS: ADMIT Internal Medicine; ATTEND Internal Medicine
PROC: HZ2ZZZZ Detoxification Services for Substance Abuse Treatment (ICD-10-PCS; principal; 2016-12-22)
DX: F11.23 Opioid dependence with withdrawal (principal); F10.20 Alcohol dependence, uncomplicated; F14.20 Cocaine dependence, uncomplicated; F17.213 Nicotine dependence, cigarettes, with withdrawal; F25.9 Schizoaffective disorder, unspecified; Z91.19 Patient's noncompliance with other medical treatment and regimen
CPT/HCPCS: 36415; 80053; 81003; 81015; 85027; 86593; 87389; 93005; 93010